=== PATIENT | male | born 1985 | race Caucasian/White ===

== ENCOUNTER 2019-07-14 08:00 | Emergency (ER) | payer BC, SELFPAY ==
[2019-07-14 08:06] VITALS: BP 149/94; PULSE 117; RESP 16; TEMP 36.8; O2SAT 99
--- NOTE | 2019-07-14 08:18 | ED.GENADUL_ITS ---
Discharge Plan Disposition Patient Disposition: HOME Condition: Improving Discharge Details Chief Complaint: Abd Prob Clinical Impression: Acute viral syndrome, Abdominal pain Primary Care Provider: Pierre Lopez ED Provider: Hernesto Jarquin Home Meds and New Rx's Prescriptions: No Action fexofenadine [Cheryl Allergy] 60 mg Tablet 60 mg PO DAILY RF: 0 Discharge Instructions Instructions: Abdominal Pain (ED) Additional Instructions: 1. Drink plenty of fluids. 2. Continue all medications as prescribed. 3. Acetaminophen 1000mg every 4 hours (up to 5 time a day) and/or ibuprofen 600mg every 6 hours as needed for fever or pain. 4. Reglan 10 mg every 6 hours as needed for nausea/abdominal cramping 5. Mcdermitt/prune juice and/or stool softeners as needed. Return to the Emergency Department (ED) if your condition worsens, does not improve as expected, or for ANY other concerns. Specifically, return if you have new or uncontrolled pain, worsening fever, difficulty breathing, vomiting, or are unable to drink fluids. Medical Decision Making Presents with 3 days of constipation, generalized myalgias, and associated nausea. Has subjective abdominal distention which is not clinically evident on exam. Nonfocal exam with minimal left lower quadrant tenderness. Clinical improved after receiving IV crystalloid and IV metoclopramide. Labs nondiagnostic. On reevaluation, clinically improved with resolution of abdominal discomfort and nausea. Discharged home with a plan for aggressive oral hydration, OTC analgesia, oral Reglan as needed, and outpatient PCP follow- up. Given usual and customary return instructions prior to discharge Medical Records Medical records reviewed: Yes I reviewed the patient's medical records. Lab Data Lab results reviewed: Yes I reviewed the patient's lab results. Lab results narrative: Normal WBC, electrolytes with minimally elevated LFTs. HPI 33-year-old gentleman with a past medical history which includes a remote ICU admission for gluten intolerance. Presents with generalized myalgias, abdominal bloating, constipation, and nausea over the past 3 days. Reports that he often has 2 or 3 days without having a bowel movement but this is typically not associated with abdominal bloating or discomfort. Denies specific association with any food ingestion. Denies fever/chills, dyspnea, palpitations, chest pain, melena, urinary symptoms. Has been tolerating oral intake with no emesis. General Date/Time Provider Initiated Documentation: 07/14/19 08:05 . Related Data Home Medications Medication Instructions Recorded Confirmed fexofenadine [Cheryl Allergy] 60 mg PO DAILY 07/14/19 07/14/19 Allergies Allergy/AdvReac Type Severity Reaction Status Date / Time diphenhydramine Allergy Unverified 07/14/19 08:13 [From Benadryl] gluten Allergy Unverified 07/14/19 08:13 General Stated Complaint: Abd Prob RONNIE: 3 Review of Systems All systems reviewed & are unremarkable except as noted in HPI and below PFSH Social History Smoking/Tobacco Use Status: Never Alcohol Intake: never Substance use type: does not use Exam Narrative Exam Narrative: Nursing note and vital signs have been reviewed and noted. GENERAL: alert, active, no acute distress, well -hydrated, well-nourished HEENT: atraumatic/normocephalic, PERRLA, EOMI, conjunctiva clear, external ears/canals normal, nasal mucosa normal NECK: supple, full range of motion, no mass, normal lymphadenopathy, no thyromegaly CARDIOVASCULAR: RRR, no murmurs, nl pulses, no edema PULMONARY: nl effort, no audible wheezing or stridor, nl breath sounds with no focal deficit. no chest wall tenderness ABDOMEN: soft, non-distended, no mass, no organomegaly; minimal left lower quadrant tenderness; no rebound, guarding, or peritonitis EXTREMITY: normal muscle tone, all joints with FROM, no deformity or tenderness SKIN: no exanthem appreciated NEURO: gross motor exam normal, normal stance and gait PSYCH: alert and oriented, Course Vital Signs Vital signs: Vital Signs Temperature 98.2 F 07/14/19 08:06 Pulse 117 H 07/14/19 08:06 Respiratory Rate 16 07/14/19 08:06 Blood Pressure 149/94 H 07/14/19 08:06 Pulse Oximetry 99 07/14/19 08:06 Temperature 98.2 F 07/14/19 08:06 Temperature Source Skin 07/14/19 08:06 Pulse 117 H 07/14/19 08:06 Respiratory Rate 16 07/14/19 08:06 Respiratory Effort Non-Labored 07/14/19 08:06 Blood Pressure 149/94 H 07/14/19 08:06 Blood Pressure Position Sitting 07/14/19 08:06 Pulse Oximetry 99 07/14/19 08:06 Oxygen Delivery Method Room Air 07/14/19 08:06 Oxygen Flow Rate 0 07/14/19 08:06 Pain Level 3 07/14/19 08:06
[2019-07-14] MEDS: Lactated Ringers 1,000 ML 1000 ML IV (08:35)
[2019-07-14] MEDS: Metoclopramide 10 MG/2 ML VIAL IVP (08:40)
[2019-07-14 08:45] LABS: Absolute Basophil Count 0.04 k/cumm (0.0-0.2); Absolute Lymphocyte Count 0.73 k/cumm (1.2-3.4); Absolute Monocyte Count 0.52 k/cumm (0.11-0.7); Absolute Neutrophil Count 2.87 k/cumm (1.2-6.7); HCT 47.3 % (40.0-50.0); HGB 15.7 g/dL (13.5-17.5); Lymphocytes % 17.5; Mean Corp. HGB Concentration 33.2 g/dL (32.0-36.0); Mean Corpuscular Hemoglobin 27.8 pg (27.0-33.0); Mean Corpuscular Volume 83.9 fL (80-95); Mean Platelet Volume 9.9 fL (8.0-11.0); Monocytes % 12.5; Platelet Count 213 x1000/uL (130-400); RBC 5.64 m/cumm (4.50-6.00); RBC Distribution Width 13.6 % (11.8-14.1); White Blood Cell Count 4.16 k/cumm (4.4-10.8)
[2019-07-14 08:57] LABS: ALT 132 U/L (16-63); AST 76 U/L (15-37); Albumin 3.8 g/dL (3.4-5.0); Alkaline Phosphatase 88 U/L (46-116); Anion Gap 10.8 mmol/L (3-11); BUN 11 mg/dL (7-18); Bilirubin, Total 0.7 mg/dL (0.2-1.0); CO2 25.2 mmol/L (21.0-32.0); CREATININE 1.04 mg/dL (0.70-1.30); Calcium 8.9 mg/dL (8.5-10.1); Chloride 99 mmol/L (98-107); Glucose 87 mg/dL (74-106); Sodium 135 mmol/L (136-145); Total Protein 7.9 g/dL (6.4-8.2)
[2019-07-14 09:29] VITALS: BP 141/59; PULSE 86; RESP 20; TEMP 37.2; O2SAT 98
[2019-07-14 09:54] VITALS: BP 135/73; PULSE 88; RESP 15; TEMP 37.8; O2SAT 97
[2019-07-14] MEDS: Metoclopramide 10 MG TAB 20 MG PO (09:54)
[2019-07-14 09:57] VITALS: BP 135/73; PULSE 88; RESP 15; TEMP 37.8; O2SAT 97
== END 2019-07-14 09:59 | disposition home or self-care (01) ==
PROVIDERS: Emergency Provider Emergency Medicine; PCP Family Medicine
DX: B34.9 Viral infection, unspecified (principal); R10.32 Left lower quadrant pain
CPT/HCPCS: 80053; 96361; 96374; 99284; 85025; J2765